=== PATIENT | female | born 1980 | race Two or more races ===

== ENCOUNTER 2018-03-18 18:15 | Emergency (ER) | payer MEDICAID ==
[~2018-03-18] VITALS: Ht 147.3 cm; Wt 66.2 kg
[2018-03-18] MEDS ORDERED: Morphine Sulfate 4mg/ml Inj IVP ONE (18:45)
--- NOTE | 2018-03-18 18:45 | Emergency Room Report ---
History of Present Illness General Chief Complaint: Abdominal Pain Source: Patient Present Illness HPI Patient persist with complaints of right upper quadrant pain Reports that earlier in the morning she was seen and had an ultrasound done which showed gallstones She was told by her physician that if the pain worsened to present to the ER Patient denies any nausea vomiting denies any chest pain or shortness of breath Pain is 3 out of 10 localized to the right upper quadrant this time Denies any previous surgeries Denies any change with eating or position Allergies: Coded Allergies: No Known Allergies (Unverified , 03/18/18) Patient History Past Medical History: see triage record Pertinent Family History: none Last Menstrual Period: 03/04/18 Now: No Reviewed Nursing Documentation: PMH: Agreed; PSxH: Agreed Nursing Documentation-PMH Past Medical History: No Stated History Review of Systems All Other Systems: negative except mentioned in HPI Physical Exam Vital Signs Date Time Temp Pulse Resp B/P (MAP) Pulse Ox O2 Delivery O2 Flow Rate FiO2 03/18/18 18:21 98.8 94 20 128/83 92 Room Air 98.8 Sp02 EP Interpretation: reviewed, normal General Appearance: well appearing, no apparent distress Head: normocephalic, atraumatic Eyes: bilateral eye PERRL, bilateral eye EOMI ENT: hearing grossly normal, normal pharynx, TMs + canals normal, uvula midline Neck: full range of motion, supple, no meningismus, no bony tend Respiratory: lungs clear, normal breath sounds, no rhonchi, no respiratory distress, no retraction, no accessory muscle use Cardiovascular #1: normal peripheral pulses, regular rate, rhythm, no edema, no gallop, no JVD, no murmur Gastrointestinal: normal bowel sounds, non tender, soft, no mass, no organomegaly, non-distended, no guarding, no hernia, no pulsatile mass, no rebound Genitourinary: no CVA tenderness Musculoskeletal: normal inspection Neurologic: oriented x3, responsive, filter tank tender helper III-XII nml as tested, motor strength/ tone normal, sensory intact Psychiatric: mood/affect normal Skin: normal color, no rash, warm/dry, palpation normal Lymphatic: normal inspection, no adenopathy Medical Decision Making Diagnostic Impression: Primary Impression: Biliary colic Additional Impression: UTI (urinary tract infection) ER Course With the patient's history and examination, multiple differentials considered, including but not limited to , ectopic , ovarian torsion, gastritis, cholecystitis, pancreatitis, appendicitis Unfortunately we are not able to download imaging disc from outside facility There was also no reports or impression with the patient At this time patient has baseline blood work initiated White blood cell count was mildly elevated However liver function test and lipase are negative Patient's repeat abdominal exam reveals significant improvement Patient is afebrile does not appear to have signs of acute cholecystitis Urine sample does show bacteria And at this time now the patient does report that she has had some frequency Instructions were given to return with any fevers or increased pain And otherwise the patient will have initial conservative outpatient trial Labs Test 03/18/18 18:45 03/18/18 19:33 White Blood Count 15.2 K/UL (4.8-10.8) Red Blood Count 4.63 M/UL (4.20-5.40) Hemoglobin 14.0 G/DL (12.0-16.0) Hematocrit 41.0 % (37.0-47.0) Mean Corpuscular Volume 88 FL (80-99) Mean Corpuscular Hemoglobin 30.3 PG (27.0-31.0) Mean Corpuscular Hemoglobin Concent 34.2 G/DL (32.0-36.0) Red Cell Distribution Width 12.4 % (11.6-14.8) Platelet Count 260 K/UL (150-450) Mean Platelet Volume 10.4 FL (6.5-10.1) Neutrophils (%) (Auto) 77.6 % (45.0-75.0) Lymphocytes (%) (Auto) 13.6 % (20.0-45.0) Monocytes (%) (Auto) 6.4 % (1.0-10.0) Eosinophils (%) (Auto) 1.0 % (0.0-3.0) Basophils (%) (Auto) 1.4 % (0.0-2.0) Sodium Level 139 MMOL/L (136-145) Potassium Level 3.5 MMOL/L (3.5-5.1) Chloride Level 104 MMOL/L (98-107) Carbon Dioxide Level 25 MMOL/L (21-32) Anion Gap 10 mmol/L (5-15) Blood Urea Nitrogen 8 mg/dL (7-18) Creatinine 0.8 MG/DL (0.55-1.30) Estimat Glomerular Filtration Rate > 60 mL/min (>60) Glucose Level 120 MG/DL (74-106) Calcium Level 8.9 MG/DL (8.5-10.1) Total Bilirubin 0.9 MG/DL (0.2-1.0) Aspartate Amino Transf (AST/SGOT) 19 U/L (15-37) Alanine Aminotransferase (ALT/SGPT) 38 U/L (12-78) Alkaline Phosphatase 99 U/L (46-116) Total Protein 8.0 G/DL (6.4-8.2) Albumin 4.0 G/DL (3.4-5.0) Globulin 4.0 g/dL Albumin/Globulin Ratio 1.0 (1.0-2.7) Lipase 143 U/L (73-393) Urine Color Pale yellow Urine Appearance Clear Urine pH 7 (4.5-8.0) Urine Specific [place] 1.010 (1.005-1.035) Urine Protein Negative (NEGATIVE) Urine Glucose (UA) Negative (NEGATIVE) Urine Ketones Negative (NEGATIVE) Urine Occult Blood Negative (NEGATIVE) Urine Nitrite Negative (NEGATIVE) Urine Bilirubin Negative (NEGATIVE) Urine Urobilinogen Normal MG/DL (0.0-1.0) Urine Leukocyte Esterase 2+ (NEGATIVE) Urine RBC 0-2 /HPF (0 - 2) Urine WBC 5-10 /HPF (0 - 2) Urine Squamous Epithelial Cells Few /LPF (NONE/OCC) Urine Bacteria Few /HPF (NONE) Urine HCG, Qualitative Negative (NEGATIVE) Last Vital Signs Date Time Temp Pulse Resp B/P (MAP) Pulse Ox O2 Delivery O2 Flow Rate FiO2 03/18/18 18:21 98.8 94 20 128/83 92 Room Air 98.8 Status: improved Disposition: HOME, SELF-CARE Condition: Improved Scripts Ibuprofen* (MOTRIN*) 600 Mg Tablet 600 MG ORAL Q8H PRN for For Pain, #20 TAB 0 Refills Prov: BelgicadorAngie DO 03/18/18 Ciprofloxacin Hcl* (CIPROFLOXACIN HCL*) 500 Mg Tablet 500 MG ORAL Q12H, #14 TAB 0 Refills Prov: BelgicadorAngie DO 03/18/18 Acetaminophen With Codeine (T#3) (TYLENOL #3 TAB*) Y Tab 1 TAB ORAL Q8H PRN for For Pain, #15 TAB Prov: Angie Cates DO 03/18/18 Additional Instructions: Patient is provided with the discharge instructions notified to follow up with primary doctor in the next 2-3 days otherwise return to the er with any worsening symptoms. Please note that this report is being documented using [employer] technology. This can lead to erroneous entry secondary to incorrect interpretation by the dictating instrument. Angie Cates DO Mar 18, 2018 18:45
[2018-03-18 18:57] LABS: BASOPHILS % (AUTO) 1.4 % (0.0-2.0); LYMPHOCYTES % (AUTO) 13.6 % (20.0-45.0); MEAN CORPUSCULAR VOLUME 88 FL (80-99); MONOCYTES % (AUTO) 6.4 % (1.0-10.0); NEUTROPHILS % (AUTO) 77.6 % (45.0-75.0); PLATELET COUNT 260 K/UL (150-450); RED BLOOD COUNT 4.63 M/UL (4.20-5.40); RED CELL DISTRIBUTION WIDTH 12.4 % (11.6-14.8); WHITE BLOOD COUNT 15.2 K/UL (4.8-10.8)
[2018-03-18 19:06] LABS: ANION GAP 10 mmol/L (5-15); BLOOD UREA NITROGEN 8 mg/dL (7-18); CALCIUM 8.9 MG/DL (8.5-10.1); CARBON DIOXIDE 25 MMOL/L (21-32); CHLORIDE 104 MMOL/L (98-107); CREATININE 0.8 MG/DL (0.55-1.30); POTASSIUM 3.5 MMOL/L (3.5-5.1); SODIUM 139 MMOL/L (136-145)
[2018-03-18 19:09] VITALS: BP 123/81
[2018-03-18 19:11] LABS: ALANINE AMINOTRANSFERASE 38 U/L (12-78); ALKALINE PHOSPHATASE 99 U/L (46-116); ASPARTATE AMINO TRANSFERASE 19 U/L (15-37); BILIRUBIN,TOTAL 0.9 MG/DL (0.2-1.0)
[2018-03-18 19:35] VITALS: BP 125/87
[2018-03-18 20:03] LABS: APPEARANCE,URINE CLEAR; BILIRUBIN, URINE NEGATIVE (NEGATIVE); COLOR,URINE PALE YELLOW; GLUCOSE, URINE (UA) NEGATIVE (NEGATIVE); KETONES,URINE NEGATIVE (NEGATIVE); LEUKOCYTE ESTERASE ,URINE 2+ (NEGATIVE); NITRITE,URINE NEGATIVE (NEGATIVE); PH,URINE 7 (4.5-8.0); PROTEIN,URINE NEGATIVE (NEGATIVE); UROBILINOGEN,URINE NORMAL MG/DL (0.0-1.0)
[2018-03-18] MEDS ORDERED: Ciprofloxacin 500mg tab ORAL ONE (20:45)
[2018-03-18] MEDS ORDERED: CIPROFLOXACIN500 M2 ORAL (21:04)
[2018-03-18] MEDS ORDERED: IBUPROFEN600 MG ORAL (21:04)
[2018-03-18] MEDS ORDERED: ACETAMINOPHEN-1 EAC1 ORAL (21:04)
[2018-03-18 21:18] VITALS: BP 122/80
[2018-03-18 21:19] VITALS: BP 122/80
== END 2018-03-18 21:21 | disposition home or self-care (01) ==
LOC: EMR 20:09
DX: R10.11 Right upper quadrant pain (principal)
CPT/HCPCS: 36415; 80053; 81003; 81025; 83690; 85025; 96361; 96374; 96375; 99284; J2270; J2405

== ENCOUNTER 2019-05-28 03:49 | Emergency (ER) | payer MEDICAID ==
[~2019-05-28] VITALS: Ht 157.5 cm; Wt 68.0 kg
[~2019-05-28 03:49] MED LIST: ACETAMINOPHEN-1 EAC1 ORAL; CIPROFLOXACIN500 M2 ORAL; IBUPROFEN600 MG ORAL
--- NOTE | 2019-05-28 04:04 | NUR ---
ER Nurse Note: Pt walked in c/o pain in the RT ear for 4 days. Pt stated 10/10 pain. No drainage, no trauma. Pt stated she has an infection in ear and taking antibiotics. Pt took one tab at 1900. No heaing loss.
[2019-05-28 04:10] VITALS: BP 131/83
[2019-05-28] MEDS ORDERED: CORTISPORIN EAR10 ML OTIC (04:11)
[2019-05-28] MEDS ORDERED: AMOXICILLIN500 MG ORAL (04:11)
[2019-05-28] MEDS ORDERED: IBUPROFEN600 MG ORAL (04:11)
--- NOTE | 2019-05-28 04:14 | Emergency Room Report ---
History of Present Illness General Chief Complaint: Earache Source: Patient Present Illness HPI Patient presents with complaints of right ear pain ongoing for the past 4 days Denies any fevers denies any posterior neck pain denies any headache denies any visual changes she reports that she was using a Q-tip to clean her ear And thinks that she was more aggressive than usual Denies any change in hearing denies any sore throat pain is 8 out of 10 Allergies: Coded Allergies: No Known Allergies (Unverified , 03/18/18) Patient History Past Medical History: see triage record Last Menstrual Period: 05/20/19 Now: No Reviewed Nursing Documentation: PMH: Agreed; PSxH: Agreed Nursing Documentation-PMH Past Medical History: No Stated History Review of Systems All Other Systems: negative except mentioned in HPI Physical Exam Vital Signs Date Time Temp Pulse Resp B/P (MAP) Pulse Ox O2 Delivery O2 Flow Rate FiO2 05/28/19 03:54 98.1 73 16 131/83 (99) 96 Room Air Sp02 EP Interpretation: reviewed, normal General Appearance: well appearing, no apparent distress Head: normocephalic, atraumatic Eyes: bilateral eye PERRL, bilateral eye EOMI ENT: hearing grossly normal, normal pharynx, uvula midline, other - Right tympanic canal is irritated and erythematous, tympanic membrane also shows bulging and erythema Neck: full range of motion, supple, no meningismus, no bony tend Respiratory: lungs clear, normal breath sounds, no rhonchi, no respiratory distress, no retraction, no accessory muscle use Cardiovascular #1: normal peripheral pulses, regular rate, rhythm, no edema, no gallop, no JVD, no murmur Gastrointestinal: normal bowel sounds, non tender, soft, no mass, no organomegaly, non-distended, no guarding, no hernia, no pulsatile mass, no rebound Musculoskeletal: normal inspection Neurologic: oriented x3, responsive, orchestra director III-XII nml as tested, motor strength/ tone normal, sensory intact Psychiatric: mood/affect normal Skin: no rash Lymphatic: normal inspection, no adenopathy Medical Decision Making Diagnostic Impression: Primary Impression: otitis media Additional Impression: otitis externa ER Course Given the patient's history and presentation multiple differentials and consideration including but not limited to malignant otitis externa otitis media patient's exam and clinical findings are consistent with Simple otitis externa and otitis media patient is treated appropriately and requires close follow-up Last Vital Signs Date Time Temp Pulse Resp B/P (MAP) Pulse Ox O2 Delivery O2 Flow Rate FiO2 05/28/19 04:10 98.1 76 16 131/83 96 Room Air Status: improved Disposition: HOME, SELF-CARE Condition: Improved Scripts Ibuprofen* (MOTRIN*) 600 Mg Tablet 600 MG ORAL THREE TIMES A DAY, #20 TAB 0 Refills Prov: Angie Cates DO 05/28/19 Amoxicillin* (AMOXIL*) 500 Mg Capsule 500 MG ORAL THREE TIMES A DAY, #21 CAP Prov: Angie Cates DO 05/28/19 Neomycin/Polymyxin B Sulf/Hc* (CORTISPORIN EAR SOLUTION*) 10 Ml Solution 2 DROP OTIC FOUR TIMES A DAY for 7 Days, #1 EA Instill in affected ear as directed for 7 days Prov: Angie Cates DO 05/28/19 Referrals: NOT CHOSEN IPA/MD,REFERRING (PCP) Patient Instructions: Otitis Media, Adult, [id number], Otitis Externa, Easy- to-Read Additional Instructions: Patient is provided with the discharge instructions notified to follow up with primary doctor in the next 2-3 days otherwise return to the er with any worsening symptoms. Please note that this report is being documented using [email or web address] technology. This can lead to erroneous entry secondary to incorrect interpretation by the dictating instrument. Angie Cates DO May 28, 2019 04:14
[2019-05-28 04:25] VITALS: BP 131/83
--- NOTE | 2019-05-28 04:25 | NUR ---
ER Nurse Note: Pt seen, treated, medically cleared for discharge by ERMD. Discharge instuctions and prescriptions given with repeat verbalization by pt. Emphasized to follow up with primay care provider. All orders completed per ERMD orders. Pt a&ox4, VSS, no signs of distress. ID band removed. All questions answered per pt's questions. Pt left with all belongings, left with own transportation.
[2019-05-28] MEDS ORDERED: NORCO 5-325 TA1 EACH ORAL (18:09)
== END 2019-05-28 04:25 | disposition home or self-care (01) ==
LOC: EMR 04:04
DX: H66.91 Otitis media, unspecified, right ear (principal); H60.91 Unspecified otitis externa, right ear
CPT/HCPCS: 99282

== ENCOUNTER 2019-05-28 17:31 | Emergency (ER) | payer MEDICAID ==
[~2019-05-28] VITALS: Ht 160 cm; Wt 68.5 kg
[~2019-05-28 17:31] MED LIST changes: +AMOXICILLIN500 MG ORAL; +CORTISPORIN EAR10 ML OTIC
[2019-05-28 17:36] VITALS: BP 143/81
--- NOTE | 2019-05-28 17:45 | NUR ---
ED Nurse Note: Patient walked into ED from home with her because of her right ear pain for 4 days. patient visited [facility] [place] ED this morning. patient is alert awake x4 ambulatory steady gait, breathing unlabored and even.
[2019-05-28] MEDS ORDERED: HYDROcodone/Acetamin 5/325 tab ORAL ONE (18:00)
[2019-05-28] MEDS ORDERED: NORCO 5-325 TA1 EACH ORAL (18:09)
--- NOTE | 2019-05-28 18:10 | Emergency Room Report ---
History of Present Illness General Chief Complaint: Earache Present Illness HPI 38-year-old female patient presents the ER complaining of right-sided ear pain. Patient was seen here earlier today for similar symptoms. Was prescribed oral and topical antibiotics which she has been using. Reports continued pain symptoms. States his been taking ibuprofen without relief of symptoms. Denies fever vomiting chills. Denies other aggravating or relieving factors. Allergies: Coded Allergies: No Known Allergies (Unverified , 03/18/18) Patient History Past Medical History: see triage record Last Menstrual Period: 05/20/19 Now: No Reviewed Nursing Documentation: PMH: Agreed; PSxH: Agreed Review of Systems All Other Systems: negative except mentioned in HPI Physical Exam Vital Signs Date Time Temp Pulse Resp B/P (MAP) Pulse Ox O2 Delivery O2 Flow Rate FiO2 05/28/19 17:36 98.8 76 16 143/81 (101) 97 Room Air Sp02 EP Interpretation: reviewed, normal General Appearance: well appearing, no apparent distress, alert, GCS 15, non- toxic Head: normocephalic, atraumatic Eyes: bilateral eye normal inspection, bilateral eye PERRL ENT: hearing grossly normal, normal pharynx, no angioedema, normal voice, uvula midline, moist mucus membranes, other - Right ear canal erythematous and edematous, TM swollen and erythematous Neck: full range of motion Respiratory: lungs clear, normal breath sounds, no rhonchi, no respiratory distress, no accessory muscle use, no wheezing, speaking full sentences Cardiovascular #1: regular rate, rhythm, no edema Neurologic: alert, oriented x3, responsive, motor strength/tone normal, sensory intact Psychiatric: mood/affect normal Lymphatic: no adenopathy Medical Decision Making PA Attestation Dr. Nunez is my supervising Physician whom patient management has been discussed with. Diagnostic Impression: Primary Impression: Ear pain, right Additional Impression: Otitis media ER Course Pt. presents to the ED c/o right ear pain. Ddx considered but are not limited to otitis media, otitis externa, pain, cellulitis, mastoiditis, cerumen impaction. Low suspicion for mastoiditis, no swelling or erythema noted posterior to ear, no TTP Vital signs: are WNL, pt. is afebrile ER COURSE: Informed patient to continue taking antibiotics as previously instructed. Informed patient that pain likely due to infection, infection will take several days to improve with use of antibiotics. Will provide patient with pain medicine in the ER and at discharge. Follow-up with primary care provider in 2 to 3 days. CUREs reviewed. Provided with prescription for [place]. DISCHARGE: At this time pt is stable for d/c to home. Patient is resting comfortably, in no acute distress, nontoxic appearing, talking without difficulty. Patient to take medications as instructed Will provide with patient care instructions and any necessary prescriptions. Care plan and follow-up instructions provided. Patient instructed to follow-up with primary care provider in 3 - 5 days. Patient questions asked and answered. Patient reports understanding and agreement to treatment plan. ER precautions given. Patient instructed to return to ER immediately for any new or worsening of symptoms including but not limited to increasing SOB, persistent fever, chest pain, intractable vomiting. - Please note that this Emergency Department Report was dictated using THE [employer] technology software, occasionally this can lead to erroneous entry secondary to interpretation by the dictation equipment. Last Vital Signs Date Time Temp Pulse Resp B/P (MAP) Pulse Ox O2 Delivery O2 Flow Rate FiO2 05/28/19 17:36 98.8 76 16 143/81 (101) 97 Room Air Status: improved Disposition: HOME, SELF-CARE Condition: Stable Scripts Hydrocodone Bit/Acetaminophen 5-325* (NORCO 5-325*) 1 Each Tablet 1 TAB ORAL Q6H PRN for For Pain, #12 TAB 0 Refills Prov: Bud Rodgers 05/28/19 Patient Instructions: Otitis Externa, [id number], Otitis Media, Adult, Easy- to-Read, Earache Additional Instructions: Followup with primary care provider in 3 -5 days. Request referral to ENT. Avoid swimming, does not use Q-tips in ear. Do not take pain medication prior to drinking, driving, or operating heavy machinery. Take medications as directed. Patient questions asked and answered. ER precautions given, patient instructed to return to ER immediately for any new or worsening of symptoms. Bud Rodgers May 28, 2019 18:10
[2019-05-28 18:19] VITALS: BP 143/81
--- NOTE | 2019-05-28 18:19 | NUR ---
ER DISCHARGE NOTE: Patient is cleared to be discharged per MARTIN ROSENBERG, pt is aox4, on room air, with stable vital signs. pt was given dc and prescription instructions, pt was able to verbalize understanding, pt id band removed without complications. pt is able to ambulate with steady gait. pt took all belongings.
== END 2019-05-28 18:19 | disposition home or self-care (01) ==
LOC: EMR 18:00
DX: H66.91 Otitis media, unspecified, right ear (principal); H92.01 Otalgia, right ear
CPT/HCPCS: 99282

== ENCOUNTER 2019-10-28 08:55 | Emergency (ER) | payer MEDICAID ==
[~2019-10-28] VITALS: Ht 152.4 cm; Wt 67.1 kg
[~2019-10-28 08:55] MED LIST changes: +NORCO 5-325 TA1 EACH ORAL
--- NOTE | 2019-10-28 09:10 | NUR ---
ED Nurse Note: patient walked into ED from home c/o chest pain which is intermittent with movement. patient c/o headache on the frontal side, both symptoms started 1 week ago. patient is alert awake x4 ambulatory, breathing unlabored and even, speaking in full sentences, on a surveillance system monitor. pt. c/o chest pain for 1 week , increased with movement, non radiating,
--- NOTE | 2019-10-28 09:15 | Emergency Room Report ---
History of Present Illness General Chief Complaint: Chest Pain Source: Patient, Significant Other Present Illness HPI Patient is sent by clinic after being evaluated for chest pain. They felt she had an abnormal EKG and wanted her reevaluated with labs. The patient's been having intermittent chest pain that substernal mainly when she swallows and eats. Burning pain. She also is complaining about a headache. She denies any fevers or chills. There is been no nausea, vomiting or diarrhea. She denies any hematemesis, coffee grounds or melena. Last menstruation was October 03 and normal for her. She denies any dysuria. She is not take any medication to treat this pain. She denies any calf pain or edema. She rates the pain 5/10. It does not radiate. No risk factors for cardiac disease. The patient denies drinking alcohol or smoking. Allergies: Coded Allergies: No Known Allergies (Unverified , 03/18/18) Patient History Past Medical History: see triage record Social History: Denies: smoking, alcohol use Social History Narrative Raising children, youngest is 6 years old oldest is 10 years old Now: No Reviewed Nursing Documentation: PMH: Agreed; PSxH: Agreed Nursing Documentation-PMH Past Medical History: No History, Except For Review of Systems All Other Systems: negative except mentioned in HPI Physical Exam Vital Signs Date Time Temp Pulse Resp B/P (MAP) Pulse Ox O2 Delivery O2 Flow Rate FiO2 10/28/19 09:01 98.4 74 17 127/79 (95) 99 Room Air Sp02 EP Interpretation: reviewed, normal General Appearance: well appearing, no apparent distress, GCS 15 Head: normocephalic Eyes: bilateral eye normal inspection ENT: moist mucus membranes Neck: supple Respiratory: lungs clear, normal breath sounds Cardiovascular #1: regular rate, rhythm Cardiovascular #2: 2+ radial (R) Gastrointestinal: normal inspection, normal bowel sounds, non tender, no mass, non-distended Musculoskeletal: back normal, normal range of motion, no calf tenderness, gait/ station normal Neurologic: alert, oriented x3 Medical Decision Making Diagnostic Impression: Primary Impression: Chest pain Qualified Codes: R07.89 - Other chest pain Additional Impression: Esophagitis ER Course Patient sent from clinic with chest pain and allegedly abnormal EKG. EKG reviewed by me from clinic with nonspecific ST-T wave changes. Differential includes pericarditis, esophagitis, reflux, gastritis, myocarditis amongst others. Based on exam GI source is most likely however cardiac cause needs to be excluded. Patient evaluated with EKG, chest x-ray and labs. Patient treated with Mylanta and viscous lidocaine, Pepcid and Tylenol. ED normal sinus rhythm normal EKG rate 72. CXR normal. Labs unremarkable. Pain free with treatment. Discussed treatment plan with patient. Discussed the need for follow-up. Patient stable for outpatient observation and treatment. Laboratory Tests Test 10/28/19 09:25 White Blood Count 9.9 K/UL (4.8-10.8) Red Blood Count 4.32 M/UL (4.20-5.40) Hemoglobin 13.2 G/DL (12.0-16.0) Hematocrit 38.1 % (37.0-47.0) Mean Corpuscular Volume 88 FL (80-99) Mean Corpuscular Hemoglobin 30.6 PG (27.0-31.0) Mean Corpuscular Hemoglobin Concent 34.6 G/DL (32.0-36.0) Red Cell Distribution Width 12.3 % (11.6-14.8) Platelet Count 242 K/UL (150-450) Mean Platelet Volume 9.6 FL (6.5-10.1) Neutrophils (%) (Auto) 65.7 % (45.0-75.0) Lymphocytes (%) (Auto) 26.9 % (20.0-45.0) Monocytes (%) (Auto) 5.1 % (1.0-10.0) Eosinophils (%) (Auto) 1.3 % (0.0-3.0) Basophils (%) (Auto) 1.0 % (0.0-2.0) Prothrombin Time 10.4 SEC (9.30-11.50) Prothrombin Time INR 1.0 (0.9-1.1) Activated Partial Thromboplast Time 27 SEC (23-33) Urine Color Pale yellow Urine Appearance Clear Urine pH 6 (4.5-8.0) Urine Specific [place] 1.010 (1.005-1.035) Urine Protein Negative (NEGATIVE) Urine Glucose (UA) Negative (NEGATIVE) Urine Ketones Negative (NEGATIVE) Urine Blood Negative (NEGATIVE) Urine Nitrite Negative (NEGATIVE) Urine Bilirubin Negative (NEGATIVE) Urine Urobilinogen Normal MG/DL (0.0-1.0) Urine Leukocyte Esterase 1+ (NEGATIVE) H Urine RBC 0 /HPF (0 - 2) Urine WBC 2-4 /HPF (0 - 2) Urine Squamous Epithelial Cells Few /LPF (NONE/OCC) Urine Bacteria Few /HPF (NONE) Urine HCG, Qualitative Negative (NEGATIVE) Sodium Level 142 MMOL/L (136-145) Potassium Level 3.5 MMOL/L (3.5-5.1) Chloride Level 108 MMOL/L (98-107) H Carbon Dioxide Level 24 MMOL/L (21-32) Anion Gap 11 mmol/L (5-15) Blood Urea Nitrogen 7 mg/dL (7-18) Creatinine 0.6 MG/DL (0.55-1.30) Estimate Glomerular Filtration Rate > 60 mL/min (>60) Glucose Level 107 MG/DL (74-106) H Calcium Level 8.8 MG/DL (8.5-10.1) Total Bilirubin 1.2 MG/DL (0.2-1.0) H Direct Bilirubin 0.1 MG/DL (0.0-0.3) Aspartate Amino Transferase (AST) 18 U/L (15-37) Alanine Aminotransferase (ALT) 34 U/L (12-78) Alkaline Phosphatase 81 U/L (46-116) Total Creatine Kinase 74 U/L (26-308) Troponin I 0.000 ng/mL (0.000-0.056) Pro-B-Type Natriuretic Peptide 25 pg/mL (0-125) Total Protein 7.4 G/DL (6.4-8.2) Albumin 3.7 G/DL (3.4-5.0) Globulin 3.7 g/dL Albumin/Globulin Ratio 1.0 (1.0-2.7) EKG Diagnostic Results Rate: normal Rhythm: NSR ST Segments: no acute changes Rhythm Strip Diag. Results EP Interpretation: yes Rhythm: NSR, no PVC's, no ectopy Chest X-Ray Diagnostic Results Chest X-Ray Diagnostic Results : Chest X-Ray Ordered: Yes # of Views/Limited/Complete: 1 View Indication: Chest Pain EP Interpretation: Yes Interpretation: no consolidation, no effusion, no pneumothorax Impression: No acute disease Electronically Signed by: Electronically signed by Chilo Jason MD Last Vital Signs Date Time Temp Pulse Resp B/P (MAP) Pulse Ox O2 Delivery O2 Flow Rate FiO2 10/28/19 11:29 98.4 76 14 120/72 100 Room Air Status: improved Disposition: HOME, SELF-CARE Condition: Improved Scripts Mag Hydrox/Aluminum Hyd/Simeth (Mylanta Maximum Strength Liq) 355 Ml Oral.susp 30 ML PO Q6HR PRN for chest or abdominal pain, #240 ML Prov: Chilo Jason MD 10/28/19 Famotidine* (Pepcid 20mg tablet*) 20 Mg Tablet 20 MG ORAL DAILY, #20 TAB 0 Refills Prov: Chilo Jason MD 10/28/19 Chilo Jason MD Oct 28, 2019 09:15
[2019-10-28] MEDS ORDERED: Mylanta II UD 30ml ORAL ONE (09:30)
[2019-10-28] MEDS ORDERED: Lidocaine 2% Visc 15ml soln ORAL ONE (09:30)
[2019-10-28 09:56] LABS: EOSINOPHILS % (AUTO) 1.3 % (0.0-3.0); HEMATOCRIT 38.1 % (37.0-47.0); HEMOGLOBIN 13.2 G/DL (12.0-16.0); LYMPHOCYTES % (AUTO) 26.9 % (20.0-45.0); MEAN CORPUSCULAR VOLUME 88 FL (80-99); MONOCYTES % (AUTO) 5.1 % (1.0-10.0); NEUTROPHILS % (AUTO) 65.7 % (45.0-75.0); PLATELET COUNT 242 K/UL (150-450); RED BLOOD COUNT 4.32 M/UL (4.20-5.40); RED CELL DISTRIBUTION WIDTH 12.3 % (11.6-14.8); WHITE BLOOD COUNT 9.9 K/UL (4.8-10.8)
[2019-10-28 09:58] LABS: APPEARANCE,URINE CLEAR; BILIRUBIN, URINE NEGATIVE (NEGATIVE); COLOR,URINE PALE YELLOW; GLUCOSE, URINE (UA) NEGATIVE (NEGATIVE); KETONES,URINE NEGATIVE (NEGATIVE); LEUKOCYTE ESTERASE ,URINE 1+ (NEGATIVE); NITRITE,URINE NEGATIVE (NEGATIVE); PH,URINE 6 (4.5-8.0); PROTEIN,URINE NEGATIVE (NEGATIVE); UROBILINOGEN,URINE NORMAL MG/DL (0.0-1.0)
[2019-10-28 10:02] VITALS: BP 122/77
[2019-10-28 10:17] LABS: ANION GAP 11 mmol/L (5-15); BLOOD UREA NITROGEN 7 mg/dL (7-18); CALCIUM 8.8 MG/DL (8.5-10.1); CARBON DIOXIDE 24 MMOL/L (21-32); CHLORIDE 108 MMOL/L (98-107); CREATININE 0.6 MG/DL (0.55-1.30); POTASSIUM 3.5 MMOL/L (3.5-5.1); SODIUM 142 MMOL/L (136-145)
[2019-10-28 10:32] LABS: ALANINE AMINOTRANSFERASE 34 U/L (12-78); ALBUMIN 3.7 G/DL (3.4-5.0); ALKALINE PHOSPHATASE 81 U/L (46-116); ASPARTATE AMINO TRANSFERASE 18 U/L (15-37); BILIRUBIN,TOTAL 1.2 MG/DL (0.2-1.0); CREATINE KINASE 74 U/L (26-308)
[2019-10-28 10:34] LABS: BILIRUBIN,DIRECT 0.1 MG/DL (0.0-0.3)
--- NOTE | 2019-10-28 10:51 | Diagnostic Imaging Report ---
Indication: Chest pain Technique: One view of the chest Comparison: None Findings: Heart is upper limits normal in size. The lungs and pleural spaces are clear. There are cholecystectomy clips Impression: No acute process
[2019-10-28] MEDS ORDERED: MYLANTA MAXIMU355 ML PO (11:20)
[2019-10-28] MEDS ORDERED: FAMOTIDINE20 MG ORAL (11:20)
[2019-10-28 11:23] VITALS: BP 120/72
--- NOTE | 2019-10-28 11:23 | NUR ---
ER DISCHARGE NOTE: Patient is cleared to be discharged per ERMD DR BAE , pt is aox4, on room air, with stable vital signs. pt was given dc and prescription instructions, pt was able to verbalize understanding, pt id band and iv site removed without complications. pt is able to ambulate with steady gait. pt took all belongings.
[2019-10-28 11:29] VITALS: BP 120/72
== END 2019-10-28 11:29 | disposition home or self-care (01) ==
LOC: EMR 09:45
DX: K20.9 Esophagitis, unspecified (principal); R07.89 Other chest pain
CPT/HCPCS: 36415; 71045; 80053; 81003; 81025; 82248; 82550; 83880; 84484; 85025; 85610; 85730; 93005; 96374; S0028; Z7502; 99284